=== PATIENT | male | born 1940 | race African-American/Black ===

== ENCOUNTER 2017-03-17 20:25 | Emergency (ER) | payer OTHER ==
--- NOTE | ~2017-03-17 | EKG ---
PATIENT: URBANO GRIFFIN UNIT #: [id number] Ventricular Rate: 66 BPM Atrial Rate: 312 BPM QRS Duration: 102 ms Q-T Interval: 388 ms QTC Calculation(Bezet): 406 ms P Sesser: 100 degrees Calculated R Sesser: -30 degrees Calculated T Sesser: 38 degrees Diagnosis Line: Atrial flutter /fibrillation Diagnosis Line: Left axis deviation Diagnosis Line: Nonspecific T wave abnormality Diagnosis Line: Abnormal ECG Diagnosis Line: No previous ECGs available Diagnosis Line: Confirmed by FABYB DOUGLASS MD ([id number]) on Diagnosis Line: 03/18/2017 10:35:28 PM INTERPRETING MD: [email or web address]
--- NOTE | ~2017-03-17 | CR72 ---
[facility] A Service of [facility] & [facility] [place] RADIOLOGY TEXT RESULTS PATIENT: URBANO GRIFFIN LOCATION: [facility] : 36 UNIT #: [id number] AGE: [address]: Jonh Keith MD SEX: M ORDER DR: [id number] [facility] [address] [place], [place] [address] [id number] MR#: [id number] #: [id number] NAME: URBANO GRIFFIN. : 1940 SEX: M STUDY DATE/TIME: 03/17/2017 21:55 UNIT: [facility] ROOM: STUDY DESCRIPTION: CR Chest Single View Portable Attending Physician: Jonh Keith M.D. Ordering Physician: Jonh Keith M.D. Primary Care Physician: José Peralta M.D. MEDICAL IMAGING REPORT This report is preliminary unless electronic signature is present EXAM Portable chest HISTORY Dizzy, shortness of air and cough today. FINDINGS Mild cardiac enlargement. Normal pulmonary vascularity. Tortuous descending thoracic aorta. No airspace infiltrates or effusions. Small calcified granuloma right midlung. Calcified left hilar node. IMPRESSION 1. Mild cardiac enlargement. 2. No active disease in the lungs. Dictated by... Manjeet Hua M.D. THIS IS AN ELECTRONICALLY VERIFIED REPORT Manjeet Hua M.D. at 03/18/2017 6:26 PM YANETH/luma TD: 03/18/2017 03:48 JOB #: [id number] MEDICAL IMAGING REPORT Page 1 of 1 COPY
[~2017-03-17 20:25] MED LIST: AMIODARONE PO; LORTAB 10/500 T1 TAB PO; NORVASC PO; TOPROL XL PO; VICODIN 5/500 T1 TAB PO
[2017-03-17 21:29] LABS: BASOPHIL% 0.5 % (0-2.5); EOSINOPHIL# 0.1 X10e3 (0-0.7); EOSINOPHIL% 1.5 % (0.0-7.0); HEMATOCRIT 43.7 % (38.0-50.0); LYMPHOCYTE# 1.3 X10e3 (1.0-3.5); LYMPHOCYTE% 14.7 % (17.0-45.0); MEAN CELL VOLUME 80.4 FL (83-96); MEAN CORPUSCULAR HEMOGLOBIN 25.8 PG (28-34); MEAN CORPUSCULAR HGB CONC 32.1 g/dL (30-36); MEAN PLATELET VOLUME 9.5 FL (6.5-11.5); MONOCYTE# 0.8 X10e3 (0-1.0); MONOCYTE% 9.6 % (3.0-12.0); NEUTROPHIL# 6.5 X10e3 (1.5-7.1); NEUTROPHIL% 73.7 % (40-75); PLATELET COUNT 127 X10e3 (140-420); RED BLOOD COUNT 5.43 X10e (3.90-5.60); RED CELL DISTRIBUTION WIDTH 14.4 % (11.0-15.5); WHITE BLOOD COUNT 8.9 X10e3 (4.0-10.5)
[2017-03-17 21:29] LABS: POC - CKMB 1.8 ng/mL (0.0-7.9); POC - TROPONIN <0.05 ng/mL (<=0.05)
[2017-03-17 21:31] LABS: DIFF IND NO
[2017-03-17 21:40] LABS: ALBUMIN SERUM 4.4 g/dL (3.5-5.0); BILIRUBIN, DIRECT 0.3 mg/dL (0.0-0.2); BILIRUBIN,INDIRECT 1.5 mg/dL (0.0-0.9); BILIRUBIN,TOTAL 1.8 mg/dL (0.2-2.0); CALCIUM SERUM 9.4 mg/dL (8.4-10.2); GLOM FILT RATE Estimated 83.2 mL/min (>60); POTASSIUM 4.2 mmol/L (3.5-5.1); PROTEIN TOTAL SERUM 7.2 g/dL (6.0-8.3)
[2017-03-17 23:31] LABS: POC - CKMB 1.7 ng/mL (0.0-7.9); POC - TROPONIN <0.05 ng/mL (<=0.05)
== END 2017-03-18 00:03 | disposition home or self-care (01) ==
LOC: CED 20:25
PROVIDERS: Emergency Medicine
DX: I10 Essential (primary) hypertension (principal); I48.91 Unspecified atrial fibrillation; Z91.19 Patient's noncompliance with other medical treatment and regimen; M10.9 Gout, unspecified; Z79.899 Other long term (current) drug therapy
CPT/HCPCS: 36415; 71010; 80048; 80076; 82553; 84484; 85025; 93005; 96372; 99284; J1650